=== PATIENT | female | born 1995 | race Caucasian/White ===

== ENCOUNTER 2019-11-27 11:33 | Emergency (ER) | payer MEDICAID ==
[~2019-11-27] VITALS: Ht 162.6 cm; Wt 63.5 kg
[2019-11-27 11:46] VITALS: BP_SYST 132
[2019-11-27] MEDS ORDERED: KETOROLAC TROMETHAMINE 60 MG/2 ML VIAL IM ONE (12:30)
[2019-11-27] MEDS: KETOROLAC TROMETHAMINE 30 MG VIAL IVP ONE (12:40)
[2019-11-27] MEDS ORDERED: KETOROLAC TROMETHAMINE 30 MG VIAL ONE (12:54)
[2019-11-27 13:20] VITALS: BP_SYST 127
== END 2019-11-27 13:20 | disposition home or self-care (01) ==
LOC: SED 11:33
DX: R55 Syncope and collapse (principal); M54.5 Low back pain
CPT/HCPCS: 81002; 81025; 93005; 96374; 99283; J1885